=== PATIENT | male | born 1960 | race African-American/Black ===

== ENCOUNTER 2016-06-23 17:05 | Emergency (ER) | payer OTHER ==
[~2016-06-23] VITALS: Ht 175.3 cm; Wt 113.2 kg
[2016-06-23 19:24] VITALS: BP 1150/86
== END 2016-06-23 19:48 ==
LOC: EME 17:05
PROC: 0HQKXZZ Repair Right Lower Leg Skin, External Approach (ICD-10-PCS; principal; 2016-06-23)
DX: I83.891 Varicose veins of right lower extremity with other complications (principal); E11.9 Type 2 diabetes mellitus without complications; I10 Essential (primary) hypertension; I73.9 Peripheral vascular disease, unspecified; Z79.01 Long term (current) use of anticoagulants
CPT/HCPCS: 99281; 99284

== ENCOUNTER 2016-06-25 04:52 | Emergency (ER) | payer OTHER ==
[~2016-06-25] VITALS: Ht 175.3 cm; Wt 114.7 kg
[2016-06-25 05:44] VITALS: BP 150/81
== END 2016-06-25 05:45 | disposition home or self-care (01) ==
LOC: EME → EDBD 04:52 → EME 04:52
DX: I83.891 Varicose veins of right lower extremity with other complications (principal); I10 Essential (primary) hypertension; E11.9 Type 2 diabetes mellitus without complications; Z86.79 Personal history of other diseases of the circulatory system; Z88.1 Allergy status to other antibiotic agents
CPT/HCPCS: 99281; 99284